=== PATIENT | male | born 1965 | race Caucasian/White ===

== ENCOUNTER → 2020-08-06 | Outpatient (CLI) | payer OTHER | LOC: YCFC.O 16:09 | PROVIDERS: ATTEND Family Medicine | DX: E13.621 Other specified diabetes mellitus with foot ulcer (principal) ==

== ENCOUNTER → 2020-08-07 | Outpatient (CLI) | payer OTHER | LOC: YCFC.O 10:35 | PROVIDERS: ATTEND Family Medicine | DX: E11.9 Type 2 diabetes mellitus without complications (principal); E78.5 Hyperlipidemia, unspecified; D64.9 Anemia, unspecified; Z12.5 Encounter for screening for malignant neoplasm of prostate; R53.83 Other fatigue ==

== ENCOUNTER → 2020-11-25 | Outpatient (CLI) | payer OTHER | LOC: YCFC.O 14:43 | PROVIDERS: ATTEND Family Medicine | DX: D64.9 Anemia, unspecified (principal); E11.9 Type 2 diabetes mellitus without complications ==